=== PATIENT | male | born 1995 | race African-American/Black ===

== ENCOUNTER 2019-08-28 17:20 | Emergency (ER) | payer OTHER ==
[~2019-08-28] VITALS: Ht 167.6 cm; Wt 127.0 kg
[2019-08-28 18:08] LABS: PLATELET COUNT 92 K/uL (142-355)
[2019-08-28 19:00] VITALS: BP 116/61; TEMP 98.4
== END 2019-08-28 19:00 | disposition home or self-care (01) ==
LOC: ED 17:20
PROVIDERS: Emergency Medicine
DX: M54.5 Low back pain (principal)
CPT/HCPCS: 80053; 81000; 85027; 96374; 99283; 99284; J1885